=== PATIENT | female | born 1970 | race African-American/Black ===

== ENCOUNTER 2021-08-08 20:56 | Emergency (ER) | payer MEDICAID, OTHER ==
[~2021-08-08 20:56] MED LIST: Iopamidol 300 61% 100 ML VIAL FS ONE
[2021-08-08] MEDS ORDERED: Ketorolac Tromethamine 30 MG/ML VIAL ONE (21:51)
[2021-08-08] MEDS ORDERED: Ondansetron PF 4 MG/2 ML Vial ONE (21:51)
[2021-08-08] MEDS ORDERED: Dicyclomine 20 MG/2 ML VIAL ONE (21:51)
[2021-08-08 22:17] LABS: #Basophils 0.1 10x3/uL (0.0-0.2); #Eosinphils 0.2 10x3/uL (0.0-0.5); #Neutrophils 5.4 10x3/uL (1.5-8.4); %Basophils 0.7 % (0.0-2.0); %Eosinophils 1.7 % (0.0-6.0); %Lymphocytes 30.2 % (18.0-47.0); %Monocytes 10.2 % (0.0-10.0); Hemoglobin 13.7 g/dL (12.0-15.5); Mean Corpuscular HGB CONC 33.6 g/dL (32.0-36.0); Mean Corpuscular Hemoglobin 30.9 pg (27.0-33.0); Mean Corpuscular Volume 92.1 fl (81.6-98.3); Mean Platelet Volume 8.5 fl (7.4-10.4); Platelet Count 285 10x3/uL (150-450); RBC Distribution Width 14.4 % (11.5-14.5); Red Blood Cell (RBC) Count 4.43 10x6/uL (3.90-5.03); White Blood Cell (WBC) Count 9.4 10x3/uL (3.5-10.5)
[2021-08-08 22:19] LABS: Pregs Control Background? CLEAR/WHITE (CLR/WHITE); Pregs Control Bar Appear? YES (CONTROL BAR)
[2021-08-08 22:25] LABS: BHCG - Serum POSITIVE (NEGATIVE)
[2021-08-08 22:30] LABS: ALT (SGPT) 18 U/L (8-55); AST (SGOT) 16 U/L (5-34); Alkaline Phosphatase 62 U/L (40-110); Anion Gap 13 mmol/L (10-20); BUN (Urea Nitrogen) 11 mg/dL (7.0-18.7); Bilirubin, Total 0.3 mg/dL (0.2-1.2); Calc. Creatinine Clearance 0 mL/min (70-130); Calcium 9.4 mg/dL (7.8-10.44); Carbon Dioxide 24 mmol/L (22-29); Chloride 104 mmol/L (98-107); Globulin 3.7 g/dL (2.4-3.5); Glucose 108 mg/dL (70-105); Lipase 47 U/L (8-78); Potassium 4.1 mmol/L (3.5-5.1); Protein, Total 7.7 g/dL (6.0-8.3); Sodium 137 mmol/L (136-145)
== END 2021-08-09 00:20 | disposition home or self-care (01) ==
LOC: CSHERS 20:56
DX: O99.891 Other specified diseases and conditions complicating pregnancy (principal); R10.33 Periumbilical pain; M32.9 Systemic lupus erythematosus, unspecified; O10.919 Unspecified pre-existing hypertension complicating pregnancy, unspecified trimester; O99.419 Diseases of the circulatory system complicating pregnancy, unspecified trimester; I25.10 Atherosclerotic heart disease of native coronary artery without angina pectoris; Z3A.00 Weeks of gestation of pregnancy not specified; Z87.19 Personal history of other diseases of the digestive system
CPT/HCPCS: 74177; 80053; 83690; 84702; 84703; 85025; 96361; 96372; 96374; 96375; J0500; J1885; J2405; Q9967

== ENCOUNTER 2021-11-10 10:57 | Outpatient (CLI) | payer MEDICARE, MEDICAID | END 2021-11-10 10:58 | disposition home or self-care (01) | LOC: CSHMAMMO 10:57 | PROVIDERS: ATTEND Internal Medicine Rheumatology | DX: Z13.820 Encounter for screening for osteoporosis (principal); M85.89 Other specified disorders of bone density and structure, multiple sites | CPT/HCPCS: 77080 ==

== ENCOUNTER 2021-12-10 12:05 | Observation (INO) | payer MEDICARE, MEDICAID ==
[~2021-12-10 12:05] MED LIST changes: -Iopamidol 300 61% 100 ML VIAL FS ONE; +Iopamidol 370 76% 100 ML VIAL ONE
[2021-12-10 12:43] LABS: #Basophils 0.1 10x3/uL (0.0-0.2); #Eosinphils 0.2 10x3/uL (0.0-0.5); #Monocytes 1.1 10x3/uL (0.0-1.1); #Neutrophils 3.3 10x3/uL (1.5-8.4); %Eosinophils 1.9 % (0.0-6.0); %Lymphocytes 42.8 % (18.0-47.0); %Monocytes 13.1 % (0.0-10.0); %Neutrophils 40.8 % (40.0-75.0); Hemoglobin 13.8 g/dL (12.0-15.5); Mean Corpuscular Hemoglobin 31.1 pg (27.0-33.0); Mean Corpuscular Volume 94.1 fl (81.6-98.3); Mean Platelet Volume 8.8 fl (7.4-10.4); Platelet Count 321 10x3/uL (150-450); Red Blood Cell (RBC) Count 4.44 10x6/uL (3.90-5.03)
[2021-12-10] MEDS ORDERED: methylPREDNISolone Sod Succ/PF 125 MG/2 ML VIAL ONE (12:55)
[2021-12-10 12:56] LABS: ALT (SGPT) 16 U/L (8-55); AST (SGOT) 15 U/L (5-34); Albumin 4.2 g/dL (3.5-5.0); Alkaline Phosphatase 58 U/L (40-110); Anion Gap 16 mmol/L (10-20); BUN (Urea Nitrogen) 13 mg/dL (7.0-18.7); Bilirubin, Total 0.5 mg/dL (0.2-1.2); Calc. Creatinine Clearance 0 mL/min (70-130); Calcium 8.9 mg/dL (7.8-10.44); Carbon Dioxide 24 mmol/L (22-29); Chloride 102 mmol/L (98-107); Estimated GFR 67; Globulin 3.1 g/dL (2.4-3.5); Glucose 98 mg/dL (70-105); Potassium 3.6 mmol/L (3.5-5.1); Protein, Total 7.3 g/dL (6.0-8.3); Sodium 138 mmol/L (136-145)
[2021-12-10 13:59] LABS: SARS-CoV-2 NAA Rapid Test Not Detected (NotDetected)
[2021-12-10 17:04] LABS: Phosphorus 3.6 mg/dL (2.3-4.7)
[2021-12-10 18:55] VITALS: BMI 38.0
[2021-12-10] MEDS: Pancrelipase DR 12,000 1 CAP PO SCH (20:36)
[2021-12-10] MEDS: Famotidine 20 MG TAB PO SCH (20:37)
[2021-12-10] MEDS: Doxycycline 100 MG in Sodium Chloride 0.9% 100 ML IVPB SCH (20:56)
[2021-12-10] MEDS ORDERED: ALPRAZolam 1 MG TAB PO SCH (21:00)
[2021-12-11] MEDS ORDERED: Guaifenesin DM 100-10/5 ML UDCUP PO PRN (04:28)
[2021-12-11 05:12] LABS: #Monocytes 0.3 10x3/uL (0.0-1.1); #Neutrophils 6.9 10x3/uL (1.5-8.4); %Basophils 0.1 % (0.0-2.0); %Lymphocytes 16.9 % (18.0-47.0); %Monocytes 3.2 % (0.0-10.0); %Neutrophils 79.3 % (40.0-75.0); Hemoglobin 13.9 g/dL (12.0-15.5); Mean Corpuscular HGB CONC 33.2 g/dL (32.0-36.0); Mean Corpuscular Hemoglobin 31.2 pg (27.0-33.0); Mean Corpuscular Volume 94.2 fl (81.6-98.3); Mean Platelet Volume 8.7 fl (7.4-10.4); Platelet Count 308 10x3/uL (150-450); RBC Distribution Width 14.1 % (11.5-14.5); Red Blood Cell (RBC) Count 4.45 10x6/uL (3.90-5.03); White Blood Cell (WBC) Count 8.7 10x3/uL (3.5-10.5)
[2021-12-11 05:36] LABS: ALT (SGPT) 16 U/L (8-55); AST (SGOT) 12 U/L (5-34); Alkaline Phosphatase 56 U/L (40-110); Anion Gap 18 mmol/L (10-20); BUN (Urea Nitrogen) 13 mg/dL (7.0-18.7); Bilirubin, Total 0.2 mg/dL (0.2-1.2); Calc. Creatinine Clearance 114 mL/min (70-130); Calcium 9.6 mg/dL (7.8-10.44); Carbon Dioxide 22 mmol/L (22-29); Chloride 104 mmol/L (98-107); Estimated GFR 80; Globulin 3.8 g/dL (2.4-3.5); Glucose 204 mg/dL (70-105); Potassium 3.6 mmol/L (3.5-5.1); Protein, Total 7.8 g/dL (6.0-8.3); Sodium 140 mmol/L (136-145)
[2021-12-11] MEDS: Doxycycline 100 MG in Sodium Chloride 0.9% 100 ML IVPB SCH (05:41)
[2021-12-11] MEDS: Famotidine 20 MG TAB PO SCH (08:33)
[2021-12-11] MEDS ORDERED: Enoxaparin Sodium 40 MG/0.4 ML SYRINGE SC SCH (09:00)
[2021-12-11] MEDS ORDERED: FLUoxetine HCl 20 MG CAP PO SCH (09:00)
[2021-12-11] MEDS ORDERED: busPIRone HCl 5 MG TAB PO SCH (09:00)
[2021-12-11] MEDS ORDERED: methylPREDNISolone Sod Succ 40 MG VIAL IVP SCH (09:00)
[2021-12-11] MEDS: Pancrelipase DR 12,000 1 CAP PO SCH (09:19)
[2021-12-11 13:01] VITALS: BP 132/65; TEMP 97.9
[2021-12-11] MEDS ORDERED: Mycophenolate 250 MG CAP PO SCH (21:00)
== END 2021-12-11 13:08 | disposition home or self-care (01) ==
LOC: CSHERS 12:05 → CSHTELE 18:24 → INTOOBSV 18:24
PROVIDERS: ADMIT Family Medicine; ATTEND Hospitalist
DX: J96.01 Acute respiratory failure with hypoxia (principal); J40 Bronchitis, not specified as acute or chronic; J06.9 Acute upper respiratory infection, unspecified; I10 Essential (primary) hypertension; F32.A Depression, unspecified; F41.9 Anxiety disorder, unspecified; Z20.822 Contact with and (suspected) exposure to COVID-19; Z79.899 Other long term (current) drug therapy; Z79.82 Long term (current) use of aspirin; Z88.8 Allergy status to other drugs, medicaments and biological substances; Z88.2 Allergy status to sulfonamides
CPT/HCPCS: 0240U; 71275; 80053 ×2; 83735; 83880; 84100; 84145; 84484; 85025 ×2; 93005; 94640 ×3; 94760 ×2; 96374; 99285; 36415; J1650; J2920; J2930; J3490; J7620; Q9967

== ENCOUNTER 2021-12-17 13:36 | Emergency (ER) | payer MEDICARE, OTHER ==
[2021-12-17] MEDS ORDERED: methylPREDNISolone Sod Succ/PF 125 MG/2 ML VIAL ONE (14:24)
[2021-12-17 14:46] LABS: #Basophils 0.1 10x3/uL (0.0-0.2); #Eosinphils 0.1 10x3/uL (0.0-0.5); #Neutrophils 7.2 10x3/uL (1.5-8.4); %Basophils 0.4 % (0.0-2.0); %Lymphocytes 35.3 % (18.0-47.0); %Monocytes 7.3 % (0.0-10.0); %Neutrophils 55.3 % (40.0-75.0); Hemoglobin 14.9 g/dL (12.0-15.5); Mean Corpuscular HGB CONC 33.9 g/dL (32.0-36.0); Mean Corpuscular Hemoglobin 31.9 pg (27.0-33.0); Mean Corpuscular Volume 94.2 fl (81.6-98.3); Mean Platelet Volume 8.6 fl (7.4-10.4); Platelet Count 373 10x3/uL (150-450); RBC Distribution Width 14.4 % (11.5-14.5); Red Blood Cell (RBC) Count 4.67 10x6/uL (3.90-5.03); White Blood Cell (WBC) Count 13.1 10x3/uL (3.5-10.5)
[2021-12-17 15:06] LABS: ALT (SGPT) 31 U/L (8-55); AST (SGOT) 19 U/L (5-34); Albumin 4.3 g/dL (3.5-5.0); Alkaline Phosphatase 55 U/L (40-110); Anion Gap 16 mmol/L (10-20); BUN (Urea Nitrogen) 16 mg/dL (7.0-18.7); Bilirubin, Total 0.4 mg/dL (0.2-1.2); Calc. Creatinine Clearance 0 mL/min (70-130); Calcium 9.5 mg/dL (7.8-10.44); Carbon Dioxide 27 mmol/L (22-29); Chloride 103 mmol/L (98-107); Estimated GFR 65; Globulin 3.1 g/dL (2.4-3.5); Glucose 96 mg/dL (70-105); Potassium 4.1 mmol/L (3.5-5.1); Protein, Total 7.4 g/dL (6.0-8.3); Sodium 142 mmol/L (136-145)
[2021-12-17 15:11] LABS: Troponin I Less than 0.010 ng/mL (< 0.028)
[2021-12-17] MEDS ORDERED: Albuterol Sulfate 2.5 mg/3 ml Neb ONE ×2 (15:47→15:48)
== END 2021-12-17 18:33 | disposition home or self-care (01) ==
LOC: CSHERS 13:36
DX: R06.02 Shortness of breath (principal); M32.9 Systemic lupus erythematosus, unspecified; I10 Essential (primary) hypertension
CPT/HCPCS: 71045; 80053; 83880; 84484; 85025; 93005; 94640; 94644; 94760; 96374; J2930; J7611; J7620

== ENCOUNTER 2024-01-08 08:57 | Emergency (ER) | payer MEDICARE, OTHER ==
[2024-01-08 09:57] LABS: #Basophils 0.12 10x3/uL (0.0-0.2); #Eosinophils 0.26 10x3/uL (0.0-0.5); #Monocytes 0.83 10x3/uL (0.0-1.1); #Neutrophils 5.69 10x3/uL (1.5-8.4); %Basophils 1.1 % (0.0-2.0); %Eosinophils 2.5 % (0.0-6.0); %Lymphocytes 34.4 % (18.0-47.0); %Monocytes 7.8 % (0.0-10.0); %Neutrophils 53.8 % (40.0-75.0); Hematocrit 45.5 % (34.9-44.5); Hemoglobin 15.2 g/dL (12.0-15.5); Mean Corpuscular HGB CONC 33.4 g/dL (32.0-36.0); Mean Corpuscular Hemoglobin 31.4 pg (27.0-33.0); Mean Platelet Volume 9.3 fL (7.4-10.4); Platelet Count 274 10x3/uL (150-450); RBC Distribution Width 14.4 % (11.5-14.5); Red Blood Cell (RBC) Count 4.84 10x6/uL (3.90-5.03); White Blood Cell (WBC) Count 10.6 10x3/uL (3.5-10.5)
[2024-01-08] MEDS ORDERED: Mag-Al 1200 mg/1200 mg/30 ML UDCUP ONE (10:14)
[2024-01-08] MEDS ORDERED: Lidocaine Viscous Sol 2% 15 ml UD Cup ONE (10:15)
[2024-01-08] MEDS ORDERED: Morphine 4 MG/ML VIAL ONE (10:15)
[2024-01-08 10:16] LABS: ALT (SGPT) 19 U/L (8-55); AST (SGOT) 17 U/L (5-34); Albumin 3.7 g/dL (3.5-5.0); Alkaline Phosphatase 56 U/L (40-110); Anion Gap 14 mmol/L (10-20); BUN (Urea Nitrogen) 10 mg/dL (9.8-20.1); Bilirubin, Total 0.4 mg/dL (0.2-1.2); Calc. Creatinine Clearance 0 mL/min (70-130); Calcium 9.6 mg/dL (7.8-10.44); Carbon Dioxide 22 mmol/L (22-29); Chloride 107 mmol/L (98-107); Estimated GFR 82; Globulin 3.8 g/dL (2.4-3.5); Glucose 114 mg/dL (70-105); Lipase 52 U/L (8-78); Potassium 3.9 mmol/L (3.5-5.1); Protein, Total 7.5 g/dL (6.0-8.3); Sodium 139 mmol/L (136-145)
[2024-01-08 10:54] LABS: Bilirubin Neg (Negative); Blood, Urine 10 (Negative); Glucose, Urine (Dipstick) Normal (Negative); Ketone, Urine Negative (Negative); Leukocyte Negative (Negative); Nitrite Negative (Negative); Protein, Urine (Dipstick) 15 mg/dl (Neg-Trace); Specific Gravity, Urine 1.025 (1.005-1.030); Urobilinogen Normal mg/dL (Less than 2)
[2024-01-08 10:55] LABS: Clarity Clear (Clear)
[2024-01-08 11:27] LABS: Bacteria/HPF 2+ HPF (None Seen); CAUTI Indications for Culture Pelvic or flank pain; RBC/HPF 0-3 HPF (0-3); WBC/HPF 0-3 HPF (0-3)
[2024-01-08 11:28] LABS: Urine Culture Reflex No No
== END 2024-01-08 13:05 | disposition home or self-care (01) ==
LOC: CSHERS 08:57
DX: R10.13 Epigastric pain (principal); I10 Essential (primary) hypertension
CPT/HCPCS: 80053; 81001; 83690; 85025; J2272; 96374

== ENCOUNTER 2024-03-29 14:49 | Inpatient (IN) | payer MEDICARE, MEDICAID ==
[~2024-03-29 14:49] MED LIST changes: +Iopamidol 300 61% 100 ML VIAL FS ONE; -Iopamidol 370 76% 100 ML VIAL ONE
[2024-03-29] MEDS ORDERED: Pantoprazole 40 MG VIAL ONE (16:21)
[2024-03-29] MEDS ORDERED: Ondansetron PF 4 MG/2 ML Vial ONE (16:21)
[2024-03-29 16:35] LABS: #Basophils 0.04 10x3/uL (0.0-0.2); #Eosinophils 0.09 10x3/uL (0.0-0.5); #Monocytes 1.07 10x3/uL (0.0-1.1); #Neutrophils 6.99 10x3/uL (1.5-8.4); %Basophils 0.4 % (0.0-2.0); %Eosinophils 0.8 % (0.0-6.0); %Lymphocytes 27.8 % (18.0-47.0); %Monocytes 9.4 % (0.0-10.0); %Neutrophils 61.2 % (40.0-75.0); Hematocrit 50.6 % (34.9-44.5); Hemoglobin 16.6 g/dL (12.0-15.5); Mean Corpuscular HGB CONC 32.8 g/dL (32.0-36.0); Mean Corpuscular Hemoglobin 30.2 pg (27.0-33.0); Mean Platelet Volume 8.6 fL (7.4-10.4); Platelet Count 338 10x3/uL (150-450); RBC Distribution Width 14.3 % (11.5-14.5)
[2024-03-29 16:43] LABS: Prothrombin Time 11.1 sec (9.5-12.1)
[2024-03-29 16:47] LABS: ALT (SGPT) 16 U/L (8-55); AST (SGOT) 13 U/L (5-34); Albumin 3.9 g/dL (3.5-5.0); Alkaline Phosphatase 64 U/L (40-110); Anion Gap 15 mmol/L (10-20); BUN (Urea Nitrogen) 14 mg/dL (9.8-20.1); Bilirubin, Total 0.7 mg/dL (0.2-1.2); Calc. Creatinine Clearance 0 mL/min (70-130); Calcium 9.5 mg/dL (7.8-10.44); Carbon Dioxide 20 mmol/L (22-29); Chloride 107 mmol/L (98-107); Estimated GFR 73; Globulin 4.2 g/dL (2.4-3.5); Glucose 96 mg/dL (70-105); Lipase 48 U/L (8-78); Potassium 4.2 mmol/L (3.5-5.1); Protein, Total 8.1 g/dL (6.0-8.3); Sodium 138 mmol/L (136-145)
[2024-03-29] MEDS ORDERED: metroNIDAZOLE 500 MG (100 mL) BAG ONE (18:59)
[2024-03-29] MEDS ORDERED: Morphine 2 MG/ML VIAL SLOW IVP PRN (19:57)
[2024-03-29 20:02] VITALS: BMI 36.6
[2024-03-29] MEDS ORDERED: Ventolin HFA Inhaler 60 PUFF INHALER INH PRN (20:07)
[2024-03-29] MEDS ORDERED: Cyclobenzaprine 10 MG TAB PO PRN (20:08)
[2024-03-29 20:59] LABS: Hemoglobin 15.8 g/dL (12.0-15.5)
[2024-03-29 21:06] LABS: Magnesium 2.3 mg/dL (1.6-2.6)
[2024-03-29] MEDS: Ondansetron PF 4 MG/2 ML Vial IVP PRN (21:39)
[2024-03-29] MEDS: Morphine 4 MG/ML VIAL SLOW IVP PRN (21:39)
[2024-03-29] MEDS: Sodium Chloride 0.9% 1,000 ML IV SCH (21:41)
[2024-03-29] MEDS: Ciprofloxacin Lactate/D5W 400 MG in Premix 1 BAG IVPB SCH (22:55)
[2024-03-30] MEDS: metroNIDAZOLE 500 MG in Premix 1 BAG IVPB SCH (02:42)
[2024-03-30 03:36] LABS: #Basophils 0.04 10x3/uL (0.0-0.2); #Eosinophils 0.11 10x3/uL (0.0-0.5); #Monocytes 1.47 10x3/uL (0.0-1.1); #Neutrophils 7.42 10x3/uL (1.5-8.4); %Basophils 0.3 % (0.0-2.0); %Eosinophils 0.9 % (0.0-6.0); %Monocytes 12.3 % (0.0-10.0); %Neutrophils 61.9 % (40.0-75.0); Hematocrit 46.1 % (34.9-44.5); Hemoglobin 14.8 g/dL (12.0-15.5); Mean Corpuscular HGB CONC 32.1 g/dL (32.0-36.0); Mean Corpuscular Hemoglobin 30.1 pg (27.0-33.0); Mean Corpuscular Volume 93.9 fL (81.6-98.3); Mean Platelet Volume 8.5 fL (7.4-10.4); Platelet Count 306 10x3/uL (150-450); RBC Distribution Width 14.6 % (11.5-14.5); Red Blood Cell (RBC) Count 4.91 10x6/uL (3.90-5.03); White Blood Cell (WBC) Count 11.99 10x3/uL (3.5-10.5)
[2024-03-30 03:51] LABS: Anion Gap 12 mmol/L (10-20); BUN (Urea Nitrogen) 11 mg/dL (9.8-20.1); Calc. Creatinine Clearance 97 mL/min (70-130); Calcium 8.5 mg/dL (7.8-10.44); Carbon Dioxide 24 mmol/L (22-29); Chloride 108 mmol/L (98-107); Estimated GFR 73; Glucose 126 mg/dL (70-105); Potassium 4.7 mmol/L (3.5-5.1); Sodium 139 mmol/L (136-145)
[2024-03-30] MEDS: Ciprofloxacin Lactate/D5W 400 MG in Premix 1 BAG IVPB SCH ×2 (07:36→11:58)
[2024-03-30] MEDS: FLUoxetine HCl 20 MG CAP PO SCH (08:35)
[2024-03-30] MEDS: Atenolol 50 MG TAB PO SCH (08:35)
[2024-03-30] MEDS: NIFEdipine XL 60 MG ER.TAB PO SCH (08:35)
[2024-03-30] MEDS: Hydrocortisone Sod Succ/PF 100 mg/2 ml Vial IVP SCH (08:36)
[2024-03-30] MEDS: Pantoprazole 40 MG DR.TAB PO SCH (15:23)
[2024-03-30] MEDS: Benzonatate 100 MG CAP PO SCH (15:23)
[2024-03-30 16:42] LABS: Hematocrit 50.3 % (34.9-44.5); Hemoglobin 15.9 g/dL (12.0-15.5)
[2024-03-30] MEDS: Pancrelipase DR 12,000 1 CAP PO SCH (17:11)
[2024-03-30] MEDS: ALPRAZolam 1 MG TAB PO SCH (20:17)
[2024-03-30 21:12] VITALS: BMI 36.6
[2024-03-31 03:58] LABS: #Basophils 0.04 10x3/uL (0.0-0.2); #Eosinophils 0.14 10x3/uL (0.0-0.5); #Monocytes 1.28 10x3/uL (0.0-1.1); #Neutrophils 6.28 10x3/uL (1.5-8.4); %Basophils 0.4 % (0.0-2.0); %Eosinophils 1.3 % (0.0-6.0); %Lymphocytes 26.9 % (18.0-47.0); %Neutrophils 58.9 % (40.0-75.0); Hematocrit 43.7 % (34.9-44.5); Hemoglobin 14.4 g/dL (12.0-15.5); Mean Corpuscular Hemoglobin 30.8 pg (27.0-33.0); Mean Corpuscular Volume 93.6 fL (81.6-98.3); Mean Platelet Volume 8.7 fL (7.4-10.4); Platelet Count 305 10x3/uL (150-450); RBC Distribution Width 14.6 % (11.5-14.5); Red Blood Cell (RBC) Count 4.67 10x6/uL (3.90-5.03); White Blood Cell (WBC) Count 10.65 10x3/uL (3.5-10.5)
[2024-03-31 04:12] LABS: Anion Gap 11 mmol/L (10-20); BUN (Urea Nitrogen) 8 mg/dL (9.8-20.1); Calc. Creatinine Clearance 109 mL/min (70-130); Calcium 8.4 mg/dL (7.8-10.44); Carbon Dioxide 24 mmol/L (22-29); Chloride 111 mmol/L (98-107); Estimated GFR 84; Glucose 98 mg/dL (70-105); Potassium 4.8 mmol/L (3.5-5.1); Sodium 141 mmol/L (136-145)
[2024-03-31] MEDS: cloNIDine 0.1 MG TAB PO SCH (08:25)
[2024-03-31] MEDS: Pantoprazole 40 MG DR.TAB PO SCH (08:25)
[2024-03-31] MEDS: busPIRone HCl 5 MG TAB PO SCH (08:25)
[2024-03-31] MEDS: FLUoxetine HCl 20 MG CAP PO SCH (08:26)
[2024-03-31] MEDS: predniSONE 5 MG TAB PO SCH (09:04)
[2024-03-31 12:45] VITALS: BP 122/71; TEMP 98.3
== END 2024-03-31 13:29 | disposition home or self-care (01) | DRG 378 ==
LOC: CSHERS 14:49 → CSHTELE 19:04
PROVIDERS: ADMIT Family Medicine; ATTEND Family Medicine
PROC: 5A09357 Assistance with Respiratory Ventilation, Less than 24 Consecutive Hours, Continuous Positive Airway Pressure (ICD-10-PCS; principal; 2024-03-29)
DX: K57.31 Diverticulosis of large intestine without perforation or abscess with bleeding (principal); J96.11 Chronic respiratory failure with hypoxia; I10 Essential (primary) hypertension; G47.33 Obstructive sleep apnea (adult) (pediatric); J84.10 Pulmonary fibrosis, unspecified; F41.9 Anxiety disorder, unspecified; F32.A Depression, unspecified; E86.0 Dehydration; M32.9 Systemic lupus erythematosus, unspecified; Z88.2 Allergy status to sulfonamides; Z88.1 Allergy status to other antibiotic agents; Z90.49 Acquired absence of other specified parts of digestive tract; Z98.891 History of uterine scar from previous surgery; Z98.890 Other specified postprocedural states
CPT/HCPCS: 36415; 74177; 80048; 80053; 82274; 83690; 83735; 85025; 85610; 85730; 86850; 86900; 86901; 94660; 94760; 94762; 96374; 96375; J0744; J1720; J2270; J2405; J2470; J7030; J7512; Q9967

== ENCOUNTER 2024-04-23 14:02 | Outpatient (CLI) | payer MEDICARE, OTHER | END 2024-04-23 14:03 | disposition home or self-care (01) | LOC: CSHMAMMO 14:02 | PROVIDERS: ATTEND Advanced Practice Midwife | DX: Z12.31 Encounter for screening mammogram for malignant neoplasm of breast (principal); Z78.0 Asymptomatic menopausal state; M85.851 Other specified disorders of bone density and structure, right thigh; M85.852 Other specified disorders of bone density and structure, left thigh; M81.0 Age-related osteoporosis without current pathological fracture | CPT/HCPCS: 77063; 77067; 77080 ==